=== PATIENT | female | born 1980 | race Caucasian/White ===

== ENCOUNTER 2018-08-08 13:46 | Outpatient (RCR) | payer OTHER | END 2018-08-21 | disposition still patient (30) | LOC: WCC 13:46 | DX: L59.9 Disorder of the skin and subcutaneous tissue related to radiation, unspecified (principal); L59.8 Other specified disorders of the skin and subcutaneous tissue related to radiation; Z90.13 Acquired absence of bilateral breasts and nipples; Z85.3 Personal history of malignant neoplasm of breast | CPT/HCPCS: G0277; G0463 ==